=== PATIENT | male | born 1950 | race American Indian/Alaskan Native ===

== ENCOUNTER 2021-11-19 09:54 | Emergency (ER) | payer MEDICARE, OTHER ==
[~2021-11-19] VITALS: Ht 182.9 cm; Wt 102.3 kg
[~2021-11-19 09:54] MED LIST: ASPIRIN 81M81 MG/TA2 PO; CLARITIN 1010 MG/TAB PO; COMBIRESP IH; ERYTHROMYCIN D PO; MINOCYCLIN100 MG/CAP PO; NASAREL0.025 MG/1 NAS; PRILOSEC 20MG20 MG PO; RT ADVAIR 228 DISKUS IH
[2021-11-19 10:03] VITALS: BP 174/92; TEMP 98.2
[2021-11-19 11:12] VITALS: PULSE 70
== END 2021-11-19 11:13 | disposition home or self-care (01) ==
LOC: COL.ER 09:54
DX: Z20.3 Contact with and (suspected) exposure to rabies (principal); Z87.891 Personal history of nicotine dependence

== ENCOUNTER 2021-11-22 14:00 | Outpatient (RCR) | payer MEDICARE, OTHER ==
[~2021-11-22] VITALS: Ht 182.9 cm; Wt 101.8 kg
[2021-11-22 14:06] VITALS: BP 156/85; PULSE 77; TEMP 98.5
== END 2021-11-24 | disposition home or self-care (01) ==
LOC: EUO
DX: Z23 Encounter for immunization (principal)

== ENCOUNTER 2021-11-26 15:13 | Outpatient (RCR) | payer MEDICARE, OTHER ==
[~2021-11-26] VITALS: Ht 182.9 cm; Wt 101.8 kg
[2021-11-26 15:30] VITALS: BP 149/77; PULSE 72; TEMP 98.3
[2021-11-26] MEDS ORDERED: PAXLOVID 150-11 EACH PO (15:44)
[2021-12-03 14:56] VITALS: BP 135/64; PULSE 66; TEMP 97.9
== END 2021-12-03 15:38 | disposition home or self-care (01) ==
LOC: EUO 15:13
DX: Z23 Encounter for immunization (principal); Z20.3 Contact with and (suspected) exposure to rabies

== ENCOUNTER 2022-06-01 12:02 | Emergency (ER) | payer MEDICARE, OTHER ==
[~2022-06-01] VITALS: Ht 180.3 cm; Wt 104.5 kg
[~2022-06-01 12:02] MED LIST changes: +HYGROTON 2525 MG/TAB PO; +PAXLOVID 150-11 EACH PO
[2022-06-01 12:06] VITALS: TEMP 98.8
[2022-06-01 12:21] LABS: BASO # 0.1 K/mm3 (0.0-0.2); BASO % 0.9 % (0.0-2.0); EOS # 0.2 K/mm3 (0.0-0.7); EOS % 1.7 % (0.0-4.0); GRAN # 5.5 K/mm3 (1.4-6.5); GRAN % 62.1 % (42.2-75.2); HEMATOCRIT 42.8 % (42.0-52.0); LYMPH # 2.2 K/mm3 (1.2-3.4); LYMPH % 24.2 % (20.0-51.0); MEAN CELL VOLUME 88 fl (80.0-100.0); MEAN CORPUSCULAR HEMOGLOBIN 31 pg (27-31); MEAN CORPUSCULAR HGB CONC 35 g/dl (33.0-37.0); MEAN PLATELET VOLUME 11.2 fl (7.4-10.4); MONO # 0.9 K/mm3 (0.1-0.6); MONO % 9.9 % (1.7-9.3); PLATELET COUNT 226 K/mm3 (130-400); RED BLOOD COUNT 4.87 M/mm3 (4.20-5.60); REDCELL DISTRIBUTION WIDTH-CV 13.5 % (11.5-14.5)
[2022-06-01 12:33] LABS: ALANINE AMINOTRANSFERASE 35 U/L (0-55); ALBUMIN 4.5 gm/dL (3.4-4.8); ALKALINE PHOSPHATASE 92 U/L (40-150); ANION GAP 12 mmol/L (7-16); AST,SGOT 33 U/L (5-34); BILIRUBIN,TOTAL 1.4 mg/dL (0.2-1.2); BLOOD UREA NITROGEN 23 mg/dL (8-26); CALCIUM 10.3 mg/dL (8.4-10.2); CARBON DIOXIDE 22 mmol/L (23-31); CHLORIDE 106 mmol/L (98-107); CREATININE, serum 1.16 mg/dL (0.72-1.25); GLUCOSE 94 mg/dL (70-99); POTASSIUM 3.8 mmol/L (3.5-4.5); SODIUM 140 mmol/L (136-145); TOTAL PROTEIN 7.9 gm/dL (6.2-8.1)
[2022-06-01 12:41] LABS: TROPONIN-I < 0.010 ng/mL (0.00-0.033)
[2022-06-01] MEDS ORDERED: PEPCID 20MG TAB20 MG PO (16:20)
[2022-06-01 16:34] VITALS: BP 141/91; PULSE 73
== END 2022-06-01 16:35 | disposition home or self-care (01) ==
LOC: COL.ER 12:02
PROVIDERS: Emergency Medicine
DX: R07.89 Other chest pain (principal); N64.4 Mastodynia; Z87.891 Personal history of nicotine dependence